=== PATIENT | male | born 1945 | race Two or more races ===

== ENCOUNTER 2022-05-25 19:59 | Emergency (ER) | payer OTHER ==
[~2022-05-25] VITALS: Ht 162.6 cm; Wt 54.4 kg
--- NOTE | 2022-05-25 20:15 | NUR ---
PATIENT BIBRA FROM HOME C/O GLF BECAME DIZZY WHILE WALKING. HEMATOMA TO L FOREHEAD. PATIENT IS A/O X 4, RR EVEN AND UNLABORED NO SOB NOTED. NO ACUTE DISTRESS NOTED. VSS.
--- NOTE | 2022-05-25 20:32 | NUR ---
PT BEING TRANSPORTED TO CT
[2022-05-25] MEDS ORDERED: ACETAMINOPHEN ES 500 MG TABLET ONE (20:45)
[2022-05-25] MEDS: ACETAMINOPHEN ES 500 MG TABLET PO ONE (20:47)
[2022-05-25] MEDS ORDERED: OXYM15MI4 NS ×2 (21:48→22:03)
[2022-05-25] MEDS ORDERED: AMOX-430 PO ×2 (21:48→22:02)
[2022-05-25] MEDS ORDERED: AMOX/CLAVULANATE 875 MG TABLET ONE (21:54)
--- NOTE | 2022-05-25 21:57 | NUR ---
PIA [phone]. EMERGENCY CONTACT.
[2022-05-25] MEDS: AMOX/CLAVULANATE 875 MG TABLET PO ONE (22:02)
--- NOTE | 2022-05-25 22:21 | NUR ---
Patient discharged to home in stable condition. Written and verbal after care instructions given. Patient verbalizes understanding of instruction.
[2022-05-25 22:23] VITALS: BP 106/69
== END 2022-05-25 22:23 | disposition home or self-care (01) ==
LOC: ER 20:01
DX: S02.2XXA Fracture of nasal bones, initial encounter for closed fracture (principal); E11.9 Type 2 diabetes mellitus without complications; I10 Essential (primary) hypertension; W18.30XA Fall on same level, unspecified, initial encounter; Y93.89 Activity, other specified; Y92.89 Other specified places as the place of occurrence of the external cause; Y99.8 Other external cause status
CPT/HCPCS: 70450-TC; 72125-TC